=== PATIENT | female | born 1940 | race Caucasian/White ===

== ENCOUNTER 2022-01-23 20:24 | Emergency (ER) | payer MEDICARE, OTHER ==
[~2022-01-23] VITALS: Ht 165.1 cm; Wt 83.9 kg
[~2022-01-23 20:24] MED LIST: MELO15TA13 PO
[2022-01-23 21:02] VITALS: BP 158/72
[2022-01-23] MEDS ORDERED: IBUPROFEN 600 MG TABLET ONE (21:26)
[2022-01-23] MEDS ORDERED: IBUPROFEN 600 MG TABLET PO ONE (21:30)
--- NOTE | 2022-01-23 22:33 | NUR ---
Patient does not wish to proceed with medical care recommended by Delia Dempsey - [facility]. Patient given information related to possible complications, up to and including , which could occur as a result of leaving the hospital at this time. Patient verbalizes understanding of risks involved due to leaving against medical advice. Patient has signed AMA form.
== END 2022-01-23 22:35 | disposition left against medical advice (07) ==
LOC: ER 20:27
DX: M25.512 Pain in left shoulder (principal); M17.9 Osteoarthritis of knee, unspecified; E78.00 Pure hypercholesterolemia, unspecified; Z96.643 Presence of artificial hip joint, bilateral; Z60.2 Problems related to living alone
CPT/HCPCS: 73030-TC

== ENCOUNTER 2022-06-11 17:55 | Emergency (ER) | payer MEDICARE, OTHER ==
[~2022-06-11] VITALS: Ht 167.6 cm; Wt 83.9 kg
--- NOTE | 2022-06-11 18:16 | NUR ---
Patient AOx4 able to express her concerns. Patient able to provide history. BP is high patient states she is very nervous and not happy to be at the hospital. Left leg/Ankle abrasion. Will continue to monitor patient throughout shift and provide care as needed.
[2022-06-11] MEDS ORDERED: MUPI22OI2 TP (19:15)
--- NOTE | 2022-06-11 19:23 | NUR ---
Hand off report given to James, for continuity of care
--- NOTE | 2022-06-11 19:37 | NUR ---
[facility] CALLED ETA 30-45 MINUTES
--- NOTE | 2022-06-11 19:38 | NUR ---
DC PAPERWORK GIVEN. AWAITING AMBULANCE TRANSPORTATION FOR P/U
[2022-06-11 20:34] VITALS: BP 176/109
== END 2022-06-11 20:35 | disposition home or self-care (01) ==
LOC: ER 17:57
DX: S01.81XA Laceration without foreign body of other part of head, initial encounter (principal); E78.00 Pure hypercholesterolemia, unspecified; Z98.890 Other specified postprocedural states; Z79.899 Other long term (current) drug therapy; W17.89XA Other fall from one level to another, initial encounter; Y93.01 Activity, walking, marching and hiking; Y92.89 Other specified places as the place of occurrence of the external cause; Y99.8 Other external cause status
CPT/HCPCS: 99283; A6403

== ENCOUNTER 2022-06-17 12:30 | Outpatient (CLI) | payer MEDICARE, OTHER ==
[~2022-06-17 12:30] MED LIST changes: +MUPI22OI2 TP
== END 2022-06-17 23:59 | disposition home health service (06) ==
LOC: WOU 12:30
PROVIDERS: ATTEND Surgery
DX: S81.812A Laceration without foreign body, left lower leg, initial encounter (principal); W19.XXXA Unspecified fall, initial encounter; Y93.89 Activity, other specified; Y92.009 Unspecified place in unspecified non-institutional (private) residence as the place of occurrence of the external cause; M62.50 Muscle wasting and atrophy, not elsewhere classified, unspecified site; M16.0 Bilateral primary osteoarthritis of hip; M17.0 Bilateral primary osteoarthritis of knee; E66.9 Obesity, unspecified; Z68.33 Body mass index [BMI] 33.0-33.9, adult
CPT/HCPCS: 11043

== ENCOUNTER → 2022-06-24 | Outpatient (CLI) | payer MEDICARE, OTHER | END | disposition home health service (06) | LOC: WOU 13:00 | PROVIDERS: ATTEND Surgery | DX: S81.812A Laceration without foreign body, left lower leg, initial encounter (principal); W18.30XA Fall on same level, unspecified, initial encounter; Y92.89 Other specified places as the place of occurrence of the external cause; M17.0 Bilateral primary osteoarthritis of knee; M16.0 Bilateral primary osteoarthritis of hip; E66.9 Obesity, unspecified; Z68.33 Body mass index [BMI] 33.0-33.9, adult; M62.50 Muscle wasting and atrophy, not elsewhere classified, unspecified site | CPT/HCPCS: 11043 ==

== ENCOUNTER 2022-07-04 13:14 | Outpatient (CLI) | payer MEDICARE, OTHER ==
[~2022-07-04 13:14] MED LIST changes: +LIDOCAINE 2% JEL 5 ML TUBE ONE
== END 2022-07-04 23:59 | disposition home health service (06) ==
LOC: WOU 13:14
PROVIDERS: ATTEND Surgery
DX: S81.812A Laceration without foreign body, left lower leg, initial encounter (principal); W18.30XA Fall on same level, unspecified, initial encounter; Y92.89 Other specified places as the place of occurrence of the external cause; M17.0 Bilateral primary osteoarthritis of knee; M16.0 Bilateral primary osteoarthritis of hip; M62.50 Muscle wasting and atrophy, not elsewhere classified, unspecified site; E66.9 Obesity, unspecified; Z68.33 Body mass index [BMI] 33.0-33.9, adult
CPT/HCPCS: 11043

== ENCOUNTER 2023-03-14 19:19 | Inpatient (IN) | payer MEDICARE, OTHER ==
[~2023-03-14] VITALS: Ht 167.6 cm; Wt 65.8 kg
[~2023-03-14 19:19] MED LIST changes: -LIDOCAINE 2% JEL 5 ML TUBE ONE
[2023-03-14] MEDS ORDERED: PIPERACILLIN /TAZOBACTAM 3.375 G in IV D5W 50 ML IV ONE (20:30)
[2023-03-14] MEDS ORDERED: VANCOMYCIN 1 GM in IV D5W 250 ML IV ONE (20:30)
[2023-03-14] MEDS ORDERED: IV NS 0.9% 1,000 ML BAG IV ONE ×2 (20:30→22:30)
[2023-03-14] MEDS ORDERED: PIPERACI/TAZO 3.375GM/D5W 50ML PB IV ONE (20:43)
[2023-03-14] MEDS ORDERED: VANCOMYCIN 1 GM /D5W 250 ML PB IV ONE (21:06)
[2023-03-14 21:10] LABS: BASOPHILS % (AUTO) 0.1 % (0.0-2.0); EOSINOPHILS % (AUTO) 0.2 % (0.0-6.0); HEMATOCRIT 32 % (33-45); HEMOGLOBIN 10.3 g/dL (11.5-14.8); LYMPHOCYTES # (AUTO) 0.3 K/uL (0.8-4.8); LYMPHOCYTES % (AUTO) 1.8 % (20.0-44.0); MEAN CORPUSCULAR HEMOGLOBIN 29 PG (26.0-33.0); MEAN CORPUSCULAR HGB CONC 32 g/dl (31.0-36.0); MEAN CORPUSCULAR VOLUME 90 fL (82-100); MONOCYTES # (AUTO) 0.2 K/uL (0.1-1.30); MONOCYTES % (AUTO) 1.6 % (2.0-12.0); NEUTROPHILS # (AUTO) 13.8 K/uL (1.8-8.9); NEUTROPHILS % (AUTO) 96.3 % (43.0-81.0); PLATELET COUNT (AUTO) 272 K/uL (150-450); RED BLOOD CELL COUNT(AUTO) 3.59 MIL/uL (4.0-5.2); RED CELL DISTRIBUTION WIDTH 14.5 % (11.5-15.0); WHITE BLOOD COUNT (AUTO) 14.3 K/uL (4.3-11.0)
[2023-03-14 21:27] LABS: CARBON DIOXIDE 22 mmol/L (21-32); CHLORIDE 104 mmol/L (98-107); CREATININE 1.2 mg/dL (0.6-1.3); GLUCOSE 188 mg/dL (74-106); POTASSIUM 3.6 mmol/L (3.5-5.1); SODIUM SERUM 136 mmol/L (136-145); UREA NITROGEN, BLOOD 20 mg/dL (7-18)
[2023-03-14 21:33] LABS: ALANINE AMINOTRANSFERASE 13 U/L (12-78); ALBUMIN 2.3 g/dL (3.4-5.0); ALKALINE PHOSPHATASE 63 U/L (46-116); ASPARTATE AMINOTRANSFERASE 13 U/L (15-37); BILIRUBIN,DIRECT 0.1 mg/dL (0.0-0.2); BILIRUBIN,TOTAL 0.3 mg/dL (0.2-1.0); TOTAL PROTEIN, SERUM 6.2 g/dL (6.4-8.2)
[2023-03-14 21:37] LABS: LACTIC ACID 4.2 mmol/L (0.4-2.0)
[2023-03-14 21:40] LABS: INR 1.05 (0.91-1.10); PROTHROMBIN TIME 11.1 SECS (9.2-11.1)
[2023-03-14] MEDS ORDERED: MORPHINE SULFATE INJ 2 MG/ML DISP.SYRIN IV PRN (22:00)
[2023-03-14] MEDS ORDERED: ONDANSETRON HCL/PF 4 MG/2 ML VIAL IVP PRN (22:00)
[2023-03-14] MEDS ORDERED: MAG HYDROX/AL HYDROX/SIMETH 30 ML UDC PO PRN (22:00)
[2023-03-14] MEDS: IV NS 0.9% 1,000 ML IV SCH (23:15)
[2023-03-15] MEDS ORDERED: ZOSYN IVPB 3.375 G in IV D5W 50ml IV SCH (03:00)
[2023-03-15] MEDS ORDERED: PIPERACI/TAZO 3.375GM/D5W 50ML PB IV ONE (03:01)
[2023-03-15] MEDS ORDERED: ACETAMINOPHEN 325 MG TABLET ONE (07:41)
[2023-03-15] MEDS: ACETAMINOPHEN 325 MG TABLET PO PRN (07:44)
[2023-03-15 07:45] LABS: BASOPHILS % (AUTO) 0.1 % (0.0-2.0); EOSINOPHILS % (AUTO) 0.1 % (0.0-6.0); HEMATOCRIT 30 % (33-45); HEMOGLOBIN 9.6 g/dL (11.5-14.8); LYMPHOCYTES % (AUTO) 5.9 % (20.0-44.0); MEAN CORPUSCULAR HEMOGLOBIN 29 PG (26.0-33.0); MEAN CORPUSCULAR HGB CONC 32 g/dl (31.0-36.0); MEAN CORPUSCULAR VOLUME 90 fL (82-100); MONOCYTES # (AUTO) 1.2 K/uL (0.1-1.30); MONOCYTES % (AUTO) 7.2 % (2.0-12.0); NEUTROPHILS # (AUTO) 14.2 K/uL (1.8-8.9); NEUTROPHILS % (AUTO) 86.7 % (43.0-81.0); PLATELET COUNT (AUTO) 232 K/uL (150-450); RED BLOOD CELL COUNT(AUTO) 3.35 MIL/uL (4.0-5.2); RED CELL DISTRIBUTION WIDTH 14.6 % (11.5-15.0); WHITE BLOOD COUNT (AUTO) 16.4 K/uL (4.3-11.0)
[2023-03-15] MEDS ORDERED: PANTOPRAZOLE 40 MG TABLET.DR PO ONE (07:46)
[2023-03-15] MEDS: PANTOPRAZOLE 40 MG TABLET.DR PO SCH (07:46)
[2023-03-15] MEDS: IV NS 0.9% 1,000 ML IV SCH ×2 (07:53→21:00)
[2023-03-15 07:57] LABS: BILIRUBIN,TOTAL 0.4 mg/dL (0.2-1.0); CALCIUM, SERUM 7.8 mg/dL (8.5-10.1); MAGNESIUM 1.8 mg/dL (1.8-2.4); PHOSPHORUS 3.3 mg/dL (2.5-4.9); POTASSIUM 3.6 mmol/L (3.5-5.1); TOTAL PROTEIN, SERUM 5.6 g/dL (6.4-8.2)
[2023-03-15] MEDS ORDERED: ASPI-1169 PO (08:12)
[2023-03-15] MEDS ORDERED: IPRA3AMP23 IH (08:12)
[2023-03-15] MEDS ORDERED: DIPH25CA51 PO (08:12)
[2023-03-15] MEDS ORDERED: CEPH250C PO (08:12)
[2023-03-15] MEDS ORDERED: TRAM50TA2 PO (08:12)
[2023-03-15] MEDS ORDERED: MULT-447 PO (08:12)
[2023-03-15] MEDS ORDERED: ONDA4TAB5 PO (08:12)
[2023-03-15] MEDS ORDERED: ACET-868 PO ×2 (08:12)
[2023-03-15] MEDS ORDERED: SIMV-46 PO (08:12)
[2023-03-15] MEDS ORDERED: CRAN425C6 PO (08:12)
[2023-03-15] MEDS ORDERED: MELA3TAB41 PO (08:12)
[2023-03-15] MEDS ORDERED: CRAN3875 PO (08:12)
[2023-03-15] MEDS ORDERED: GABA-532 PO (08:12)
[2023-03-15] MEDS ORDERED: MYRBETRIQ ER PO (08:12)
[2023-03-15] MEDS ORDERED: ZINC56.713 TP (08:12)
[2023-03-15] MEDS ORDERED: ASCO-352 PO (08:12)
[2023-03-15] MEDS ORDERED: POLY17PO4 PO (08:12)
[2023-03-15] MEDS ORDERED: LOSA50TA39 PO (08:12)
[2023-03-15] MEDS ORDERED: DICL100G34 TP (08:12)
[2023-03-15] MEDS ORDERED: LUBI24CA5 PO (08:12)
[2023-03-15] MEDS ORDERED: PETR113O TP (08:12)
[2023-03-15] MEDS ORDERED: VIT1CAPS44 PO (08:12)
[2023-03-15] MEDS ORDERED: ACET-2605 PO (08:12)
[2023-03-15] MEDS ORDERED: DOCU-141 PO (08:12)
[2023-03-15] MEDS ORDERED: ESOM40CA PO (08:12)
[2023-03-15 08:37] LABS: THYROID STIMULATING HORMONE 2.081 uIU/mL (0.358-3.74)
[2023-03-15] MEDS ORDERED: ALBUMIN 5% 12.5 GM in PREMIX 1 EA IV ONE ×2 (09:30→12:30)
[2023-03-15] MEDS ORDERED: ALBUMIN 5% 12.5 GM/250 ML BOTTLE IV ONE (09:30)
[2023-03-15] MEDS ORDERED: IV NS 0.9% 250 ML BAG IV ONE (09:30)
[2023-03-15] MEDS ORDERED: ENOXAPARIN SODIUM 40 MG/0.4 ML DISP.SYRIN SQ ONE (09:40)
[2023-03-15] MEDS ORDERED: DOCUSATE SODIUM 100 MG CAPSULE PO ONE ×2 (09:41→19:26)
[2023-03-15] MEDS: DOCUSATE SODIUM 100 MG CAPSULE PO SCH ×2 (09:46→17:00)
[2023-03-15] MEDS: ENOXAPARIN SODIUM 40 MG/0.4 ML DISP.SYRIN SQ SCH (09:48)
[2023-03-15] MEDS ORDERED: PIPERACILLIN /TAZOBACTAM 3.375 G in IV D5W 50 ML IV SCH (12:00)
[2023-03-15] MEDS ORDERED: PIPERACILLIN /TAZOBACTAM 2.25 G in IV D5W 50 ML IV SCH (12:00)
[2023-03-15] MEDS ORDERED: NOREPINEPHRINE 8 MG in IV NS 0.9% 242 ML IV PRN (12:30)
[2023-03-15] MEDS: MEROPENEM 1 G in IV NS 0.9% 100 ML IV SCH ×2 (12:32→21:49)
[2023-03-15] MEDS: MIDODRINE HCL (5MG) 5 MG TABLET PO SCH ×2 (15:18→17:00)
[2023-03-15] MEDS: VANCOMYCIN 1 GM in IV D5W 250 ML IV SCH (18:55)
[2023-03-15] MEDS ORDERED: MORPHINE SULFATE INJ 2 MG/ML DISP.SYRIN ONE (20:08)
[2023-03-15 20:53] LABS: APPEARANCE,URINE CLOUDY (CLEAR)
[2023-03-15 20:56] LABS: COLOR,URINE BROWN (YELLOW)
[2023-03-15 21:02] LABS: BACTERIA,URINE 2+ /HPF (None Seen); RBC,URINE 51-80 /HPF (0-2); SQUAMOUS EPITHELIAL CELL,UR 0-2 /HPF (None Seen); WBC,URINE 51-80 /HPF (0-3)
[2023-03-15] MEDS ORDERED: ONDANSETRON HCL/PF 4 MG/2 ML VIAL ONE (22:57)
[2023-03-16] MEDS: IV NS 0.9% 1,000 ML IV SCH ×2 (04:18→15:12)
[2023-03-16 07:22] LABS: BASOPHILS # (AUTO) 0.1 K/uL (0.0-0.2); BASOPHILS % (AUTO) 0.4 % (0.0-2.0); EOSINOPHILS # (AUTO) 0.1 K/uL (0.0-0.7); EOSINOPHILS % (AUTO) 0.6 % (0.0-6.0); HEMATOCRIT 29 % (33-45); HEMOGLOBIN 8.7 g/dL (11.5-14.8); LYMPHOCYTES # (AUTO) 1.7 K/uL (0.8-4.8); LYMPHOCYTES % (AUTO) 13.3 % (20.0-44.0); MEAN CORPUSCULAR HEMOGLOBIN 29 PG (26.0-33.0); MEAN CORPUSCULAR HGB CONC 31 g/dl (31.0-36.0); MEAN CORPUSCULAR VOLUME 96 fL (82-100); MONOCYTES # (AUTO) 0.9 K/uL (0.1-1.30); NEUTROPHILS # (AUTO) 10.1 K/uL (1.8-8.9); NEUTROPHILS % (AUTO) 78.7 % (43.0-81.0); PLATELET COUNT (AUTO) 156 K/uL (150-450); RED BLOOD CELL COUNT(AUTO) 2.98 MIL/uL (4.0-5.2); RED CELL DISTRIBUTION WIDTH 15.8 % (11.5-15.0); WHITE BLOOD COUNT (AUTO) 12.8 K/uL (4.3-11.0)
[2023-03-16] MEDS: PANTOPRAZOLE 40 MG TABLET.DR PO SCH (07:30)
[2023-03-16 07:55] LABS: CALCIUM, SERUM 7.8 mg/dL (8.5-10.1); CREATININE 0.8 mg/dL (0.6-1.3); POTASSIUM 3.5 mmol/L (3.5-5.1)
[2023-03-16 07:58] LABS: IRON, SERUM 12 ug/dl (50-175); TOTAL IRON BINDING CAPACITY 133 ug/dl (250-450)
[2023-03-16] MEDS: ENOXAPARIN SODIUM 40 MG/0.4 ML DISP.SYRIN SQ SCH (09:00)
[2023-03-16] MEDS ORDERED: MIDODRINE HCL (5MG) 5 MG TABLET ONE (09:20)
[2023-03-16] MEDS ORDERED: ENOXAPARIN SODIUM 40 MG/0.4 ML DISP.SYRIN SQ ONE (09:20)
[2023-03-16] MEDS ORDERED: MORPHINE SULFATE INJ 2 MG/ML DISP.SYRIN ONE (09:21)
[2023-03-16] MEDS ORDERED: DOCUSATE SODIUM 100 MG CAPSULE PO ONE ×2 (09:21→09:28)
[2023-03-16] MEDS ORDERED: PANTOPRAZOLE 40 MG TABLET.DR PO ONE (09:21)
[2023-03-16] MEDS: DOCUSATE SODIUM 100 MG CAPSULE PO SCH ×2 (09:23→17:13)
[2023-03-16] MEDS: MIDODRINE HCL (5MG) 5 MG TABLET PO SCH (09:23)
[2023-03-16 09:45] VITALS: BP 111/68; TEMP 98.7; O2SAT 98
[2023-03-16] MEDS: MEROPENEM 1 G in IV NS 0.9% 100 ML IV SCH ×2 (11:16→20:55)
[2023-03-16 12:00] VITALS: BP 129/59; TEMP 98.7; O2SAT 95
[2023-03-16] MEDS ORDERED: ALBUTEROL FS 2.5 MG/0.5 ML VIAL.NEB NEB PRN (12:30)
[2023-03-16] MEDS: TRAMADOL HCL 50 MG TABLET PO PRN (12:47)
[2023-03-16] MEDS ORDERED: FUROSEMIDE 20 MG/2 ML VIAL IV ONE (13:00)
[2023-03-16 16:00] VITALS: BP 116/54; TEMP 98.2; O2SAT 96
[2023-03-16] MEDS: ENSURE ENLIVE CHOC 237 ML CAN PO SCH (17:00)
[2023-03-16] MEDS: VANCOMYCIN 1 GM in IV D5W 250 ML IV SCH (17:02)
[2023-03-16 20:00] VITALS: BP 109/60; TEMP 98; O2SAT 96
[2023-03-17] VITALS: BP 107/58; TEMP 98; O2SAT 98
[2023-03-17 04:00] VITALS: BP 109/58; TEMP 99.3; O2SAT 97
[2023-03-17 06:36] LABS: HEMOGLOBIN 9.8 g/dL (11.5-14.8)
[2023-03-17 06:56] LABS: BASOPHILS % (AUTO) 0.2 % (0.0-2.0); EOSINOPHILS # (AUTO) 0.1 K/uL (0.0-0.7); EOSINOPHILS % (AUTO) 1.3 % (0.0-6.0); HEMATOCRIT 30 % (33-45); LYMPHOCYTES # (AUTO) 1.4 K/uL (0.8-4.8); LYMPHOCYTES % (AUTO) 12.7 % (20.0-44.0); MEAN CORPUSCULAR HEMOGLOBIN 29 PG (26.0-33.0); MEAN CORPUSCULAR HGB CONC 33 g/dl (31.0-36.0); MEAN CORPUSCULAR VOLUME 90 fL (82-100); MONOCYTES # (AUTO) 1.1 K/uL (0.1-1.30); MONOCYTES % (AUTO) 9.9 % (2.0-12.0); NEUTROPHILS # (AUTO) 8.2 K/uL (1.8-8.9); NEUTROPHILS % (AUTO) 75.9 % (43.0-81.0); PLATELET COUNT (AUTO) 114 K/uL (150-450); RED BLOOD CELL COUNT(AUTO) 3.34 MIL/uL (4.0-5.2); RED CELL DISTRIBUTION WIDTH 14.5 % (11.5-15.0); WHITE BLOOD COUNT (AUTO) 10.8 K/uL (4.3-11.0)
[2023-03-17 07:25] LABS: CALCIUM, SERUM 7.9 mg/dL (8.5-10.1); CREATININE 0.8 mg/dL (0.6-1.3); POTASSIUM 3.3 mmol/L (3.5-5.1)
[2023-03-17 08:00] VITALS: BP 128/53; TEMP 97.9; O2SAT 96
[2023-03-17] MEDS: ASCORBIC ACID 500 MG TABLET PO SCH (08:51)
[2023-03-17] MEDS: DOCUSATE SODIUM 100 MG CAPSULE PO SCH ×2 (08:51→16:53)
[2023-03-17] MEDS: ASPIRIN EC 81 MG TABLET.DR PO SCH (08:51)
[2023-03-17] MEDS: PANTOPRAZOLE 40 MG TABLET.DR PO SCH (08:51)
[2023-03-17] MEDS: ENOXAPARIN SODIUM 40 MG/0.4 ML DISP.SYRIN SQ SCH (08:52)
[2023-03-17] MEDS: ENSURE ENLIVE CHOC 237 ML CAN PO SCH ×3 (09:07→17:29)
[2023-03-17] MEDS ORDERED: PROSOURCE / PROSTAT (PYXIS) 30 ML UDC PO SCH (10:00)
[2023-03-17] MEDS ORDERED: POTASSIUM CHLORIDE 20 MEQ TAB.PRT.SR PO SCH (10:30)
[2023-03-17] MEDS: MEROPENEM 1 G in IV NS 0.9% 100 ML IV SCH ×2 (10:31→20:59)
[2023-03-17] MEDS ORDERED: FUROSEMIDE 20 MG/2 ML VIAL IV ONE (11:00)
[2023-03-17] MEDS ORDERED: POTASSIUM CHLORIDE 20 MEQ TAB.PRT.SR PO ONE (11:00)
[2023-03-17] MEDS: PROSOURCE / PROSTAT (PYXIS) 30 ML UDC PO SCH ×3 (11:06→16:48)
[2023-03-17] MEDS ORDERED: POTASSIUM CHLORIDE 20 MEQ POWDER PACKET PO SCH (11:30)
[2023-03-17 12:00] VITALS: BP 116/56; TEMP 98.7; O2SAT 97
[2023-03-17 16:00] VITALS: BP 114/59; TEMP 98.1; O2SAT 98
[2023-03-17] MEDS ORDERED: IV NS 0.9% 250 ML IV PRN (17:00)
[2023-03-17] MEDS: VANCOMYCIN 1 GM in IV D5W 250 ML IV SCH (17:03)
[2023-03-17] MEDS ORDERED: VANCOMYCIN 0.75 GM in IV D5W 250 ML IV SCH (18:30)
[2023-03-17 20:00] VITALS: BP 126/57; TEMP 97.9; O2SAT 97
[2023-03-18] VITALS: BP 117/57; TEMP 100; O2SAT 97
[2023-03-18 04:00] VITALS: BP 109/78; TEMP 99; O2SAT 100
[2023-03-18] MEDS: TRAMADOL HCL 50 MG TABLET PO PRN ×2 (06:20→11:57)
[2023-03-18 07:09] LABS: BASOPHILS % (AUTO) 0.2 % (0.0-2.0); EOSINOPHILS # (AUTO) 0.1 K/uL (0.0-0.7); EOSINOPHILS % (AUTO) 1.6 % (0.0-6.0); HEMATOCRIT 32 % (33-45); HEMOGLOBIN 10.3 g/dL (11.5-14.8); LYMPHOCYTES # (AUTO) 1.1 K/uL (0.8-4.8); LYMPHOCYTES % (AUTO) 13.4 % (20.0-44.0); MEAN CORPUSCULAR HEMOGLOBIN 29 PG (26.0-33.0); MEAN CORPUSCULAR HGB CONC 33 g/dl (31.0-36.0); MEAN CORPUSCULAR VOLUME 89 fL (82-100); MONOCYTES % (AUTO) 11.4 % (2.0-12.0); NEUTROPHILS # (AUTO) 6.3 K/uL (1.8-8.9); NEUTROPHILS % (AUTO) 73.4 % (43.0-81.0); PLATELET COUNT (AUTO) 114 K/uL (150-450); RED BLOOD CELL COUNT(AUTO) 3.59 MIL/uL (4.0-5.2); RED CELL DISTRIBUTION WIDTH 14.6 % (11.5-15.0); WHITE BLOOD COUNT (AUTO) 8.6 K/uL (4.3-11.0)
[2023-03-18 07:18] LABS: CALCIUM, SERUM 8.2 mg/dL (8.5-10.1); CREATININE 0.8 mg/dL (0.6-1.3); POTASSIUM 3.8 mmol/L (3.5-5.1)
[2023-03-18 08:00] VITALS: BP 113/59; TEMP 98.3; O2SAT 98
[2023-03-18] MEDS: PROSOURCE / PROSTAT (PYXIS) 30 ML UDC PO SCH ×3 (08:15→17:02)
[2023-03-18] MEDS: ENSURE ENLIVE CHOC 237 ML CAN PO SCH ×3 (08:15→17:01)
[2023-03-18] MEDS: PANTOPRAZOLE 40 MG TABLET.DR PO SCH (08:16)
[2023-03-18] MEDS: ASCORBIC ACID 500 MG TABLET PO SCH (08:16)
[2023-03-18] MEDS: DOCUSATE SODIUM 100 MG CAPSULE PO SCH ×2 (08:16→17:01)
[2023-03-18] MEDS: ASPIRIN EC 81 MG TABLET.DR PO SCH (08:16)
[2023-03-18] MEDS: ENOXAPARIN SODIUM 40 MG/0.4 ML DISP.SYRIN SQ SCH (08:17)
[2023-03-18] MEDS: MEROPENEM 1 G in IV NS 0.9% 100 ML IV SCH ×2 (09:46→20:44)
[2023-03-18] MEDS ORDERED: FUROSEMIDE 20 MG/2 ML VIAL IV SCH (13:30)
[2023-03-18 16:00] VITALS: BP 121/63; TEMP 98.6; O2SAT 95
[2023-03-18] MEDS: VANCOMYCIN 0.75 GM in IV D5W 250 ML IV SCH (17:23)
[2023-03-18 20:00] VITALS: BP 127/57; TEMP 97.5; O2SAT 95
[2023-03-19 04:00] VITALS: BP 118/50; TEMP 99.2; O2SAT 98
[2023-03-19 07:23] LABS: CREATININE 0.7 mg/dL (0.6-1.3); POTASSIUM 3.6 mmol/L (3.5-5.1)
[2023-03-19 07:26] LABS: BASOPHILS % (AUTO) 0.4 % (0.0-2.0); EOSINOPHILS # (AUTO) 0.2 K/uL (0.0-0.7); EOSINOPHILS % (AUTO) 2.9 % (0.0-6.0); HEMATOCRIT 30 % (33-45); LYMPHOCYTES # (AUTO) 1.5 K/uL (0.8-4.8); LYMPHOCYTES % (AUTO) 18.8 % (20.0-44.0); MEAN CORPUSCULAR HEMOGLOBIN 29 PG (26.0-33.0); MEAN CORPUSCULAR HGB CONC 33 g/dl (31.0-36.0); MEAN CORPUSCULAR VOLUME 88 fL (82-100); MONOCYTES # (AUTO) 1.1 K/uL (0.1-1.30); MONOCYTES % (AUTO) 13.6 % (2.0-12.0); NEUTROPHILS # (AUTO) 5.3 K/uL (1.8-8.9); NEUTROPHILS % (AUTO) 64.3 % (43.0-81.0); PLATELET COUNT (AUTO) 128 K/uL (150-450); RED BLOOD CELL COUNT(AUTO) 3.41 MIL/uL (4.0-5.2); RED CELL DISTRIBUTION WIDTH 14.9 % (11.5-15.0); WHITE BLOOD COUNT (AUTO) 8.2 K/uL (4.3-11.0)
[2023-03-19 08:00] VITALS: BP 135/61; TEMP 98.4; O2SAT 97
[2023-03-19] MEDS: ASPIRIN EC 81 MG TABLET.DR PO SCH (08:51)
[2023-03-19] MEDS: MEROPENEM 1 G in IV NS 0.9% 100 ML IV SCH ×2 (08:51→20:23)
[2023-03-19] MEDS: ASCORBIC ACID 500 MG TABLET PO SCH (08:51)
[2023-03-19] MEDS: PROSOURCE / PROSTAT (PYXIS) 30 ML UDC PO SCH ×3 (08:51→16:50)
[2023-03-19] MEDS: DOCUSATE SODIUM 100 MG CAPSULE PO SCH ×2 (08:51→16:49)
[2023-03-19] MEDS: ENOXAPARIN SODIUM 40 MG/0.4 ML DISP.SYRIN SQ SCH (08:52)
[2023-03-19] MEDS: PANTOPRAZOLE 40 MG TABLET.DR PO SCH (08:52)
[2023-03-19] MEDS: ENSURE ENLIVE CHOC 237 ML CAN PO SCH ×3 (08:53→16:50)
[2023-03-19] MEDS ORDERED: POTASSIUM CHLORIDE 20 MEQ TAB.PRT.SR PO ONE ×2 (11:35→12:00)
[2023-03-19] MEDS ORDERED: FUROSEMIDE 20 MG/2 ML VIAL IV ONE (11:37)
[2023-03-19] MEDS: TRAMADOL HCL 50 MG TABLET PO PRN (12:26)
[2023-03-19 16:00] VITALS: BP 124/67; TEMP 99; O2SAT 96
[2023-03-19] MEDS: VANCOMYCIN 0.75 GM in IV D5W 250 ML IV SCH (16:49)
[2023-03-19 20:00] VITALS: BP 116/60; TEMP 99.1; O2SAT 93
[2023-03-20 04:00] VITALS: BP 102/58; TEMP 97.4; O2SAT 99
[2023-03-20 07:14] LABS: BASOPHILS % (AUTO) 0.5 % (0.0-2.0); EOSINOPHILS # (AUTO) 0.2 K/uL (0.0-0.7); HEMATOCRIT 32 % (33-45); HEMOGLOBIN 10.6 g/dL (11.5-14.8); LYMPHOCYTES # (AUTO) 1.7 K/uL (0.8-4.8); LYMPHOCYTES % (AUTO) 17.1 % (20.0-44.0); MEAN CORPUSCULAR HEMOGLOBIN 29 PG (26.0-33.0); MEAN CORPUSCULAR HGB CONC 33 g/dl (31.0-36.0); MEAN CORPUSCULAR VOLUME 88 fL (82-100); MONOCYTES # (AUTO) 1.4 K/uL (0.1-1.30); MONOCYTES % (AUTO) 14.8 % (2.0-12.0); NEUTROPHILS # (AUTO) 6.4 K/uL (1.8-8.9); NEUTROPHILS % (AUTO) 65.6 % (43.0-81.0); PLATELET COUNT (AUTO) 141 K/uL (150-450); RED BLOOD CELL COUNT(AUTO) 3.65 MIL/uL (4.0-5.2); RED CELL DISTRIBUTION WIDTH 14.6 % (11.5-15.0); WHITE BLOOD COUNT (AUTO) 9.7 K/uL (4.3-11.0)
[2023-03-20 07:50] LABS: CALCIUM, SERUM 8.2 mg/dL (8.5-10.1); CARBON DIOXIDE 29 mmol/L (21-32); CHLORIDE 99 mmol/L (98-107); CREATININE 0.7 mg/dL (0.6-1.3); GLUCOSE 106 mg/dL (74-106); POTASSIUM 3.9 mmol/L (3.5-5.1); SODIUM SERUM 134 mmol/L (136-145); UREA NITROGEN, BLOOD 12 mg/dL (7-18)
[2023-03-20 08:00] VITALS: BP 109/62; TEMP 98; O2SAT 99
[2023-03-20] MEDS: ENSURE ENLIVE CHOC 237 ML CAN PO SCH ×3 (08:23→17:37)
[2023-03-20] MEDS: PROSOURCE / PROSTAT (PYXIS) 30 ML UDC PO SCH ×3 (08:24→17:37)
[2023-03-20] MEDS: ASPIRIN EC 81 MG TABLET.DR PO SCH (08:48)
[2023-03-20] MEDS: DOCUSATE SODIUM 100 MG CAPSULE PO SCH ×2 (08:48→17:46)
[2023-03-20] MEDS: ASCORBIC ACID 500 MG TABLET PO SCH (08:48)
[2023-03-20] MEDS: ENOXAPARIN SODIUM 40 MG/0.4 ML DISP.SYRIN SQ SCH (08:49)
[2023-03-20] MEDS: PANTOPRAZOLE 40 MG TABLET.DR PO SCH (08:52)
[2023-03-20] MEDS: MEROPENEM 1 G in IV NS 0.9% 100 ML IV SCH ×2 (08:52→21:49)
[2023-03-20] MEDS: TRAMADOL HCL 50 MG TABLET PO PRN (13:23)
[2023-03-20] MEDS: FUROSEMIDE 20 MG/2 ML VIAL IV SCH ×2 (15:40→17:46)
[2023-03-20 16:00] VITALS: BP 123/81; TEMP 98.1; O2SAT 97
[2023-03-20] MEDS: FLUCONAZOLE IN NS 100 MG in PREMIX 1 EA IV SCH ×2 (17:45)
[2023-03-20 19:18] LABS: APPEARANCE,URINE CLOUDY (CLEAR); BILIRUBIN,URINE NEGATIVE (NEGATIVE); BLOOD, URINE 3+ Ery/uL (NEGATIVE); COLOR,URINE RED (YELLOW); KETONES,URINE TRACE mg/dL (NEGATIVE); LEUKOCYTE ESTERASE ,URINE 3+ (NEGATIVE); NITRITE, URINE NEGATIVE (NEGATIVE); PH,URINE 7.5 (5.0-8.0); PROTEIN,URINE 2+ mg/dl (NEGATIVE); UGLUCOSE NEGATIVE (NEGATIVE); UROBILINOGEN,URINE 0.2 EU/dL (0.2)
[2023-03-20 19:35] LABS: RBC,URINE TOO NUMEROUS TO COUN /HPF (0-2)
[2023-03-20 19:36] LABS: ADD URINE CULTURE YES; BACTERIA,URINE None seen /HPF (None Seen); YEAST,URINE None Seen /HPF (None Seen)
[2023-03-20 19:38] LABS: MUCUS,URINE Moderate /LPF (None Seen)
[2023-03-20 20:00] VITALS: BP 127/54; TEMP 98.1; O2SAT 98
[2023-03-21 04:00] VITALS: BP 104/46; TEMP 98.1; O2SAT 98
[2023-03-21 07:16] LABS: BASOPHILS % (AUTO) 0.4 % (0.0-2.0); EOSINOPHILS # (AUTO) 0.3 K/uL (0.0-0.7); EOSINOPHILS % (AUTO) 3.2 % (0.0-6.0); HEMATOCRIT 37 % (33-45); LYMPHOCYTES # (AUTO) 1.5 K/uL (0.8-4.8); LYMPHOCYTES % (AUTO) 17.7 % (20.0-44.0); MEAN CORPUSCULAR HEMOGLOBIN 29 PG (26.0-33.0); MEAN CORPUSCULAR HGB CONC 32 g/dl (31.0-36.0); MEAN CORPUSCULAR VOLUME 89 fL (82-100); MONOCYTES # (AUTO) 1.1 K/uL (0.1-1.30); MONOCYTES % (AUTO) 13.6 % (2.0-12.0); NEUTROPHILS # (AUTO) 5.4 K/uL (1.8-8.9); NEUTROPHILS % (AUTO) 65.1 % (43.0-81.0); PLATELET COUNT (AUTO) 191 K/uL (150-450); WHITE BLOOD COUNT (AUTO) 8.2 K/uL (4.3-11.0)
[2023-03-21 07:29] LABS: ALANINE AMINOTRANSFERASE 18 U/L (12-78); ALKALINE PHOSPHATASE 62 U/L (46-116); ASPARTATE AMINOTRANSFERASE 24 U/L (15-37); BILIRUBIN,TOTAL 0.4 mg/dL (0.2-1.0); CALCIUM, SERUM 8.5 mg/dL (8.5-10.1); CARBON DIOXIDE 32 mmol/L (21-32); CHLORIDE 96 mmol/L (98-107); CREATININE 0.7 mg/dL (0.6-1.3); GLUCOSE 106 mg/dL (74-106); POTASSIUM 3.9 mmol/L (3.5-5.1); SODIUM SERUM 130 mmol/L (136-145); TOTAL PROTEIN, SERUM 6.7 g/dL (6.4-8.2); UREA NITROGEN, BLOOD 12 mg/dL (7-18)
[2023-03-21 08:00] VITALS: BP 123/57; TEMP 98.6; O2SAT 98
[2023-03-21] MEDS: PANTOPRAZOLE 40 MG TABLET.DR PO SCH (09:06)
[2023-03-21] MEDS: DOCUSATE SODIUM 100 MG CAPSULE PO SCH ×2 (09:07→16:51)
[2023-03-21] MEDS: ASCORBIC ACID 500 MG TABLET PO SCH (09:07)
[2023-03-21] MEDS: ASPIRIN EC 81 MG TABLET.DR PO SCH (09:08)
[2023-03-21] MEDS: MEROPENEM 1 G in IV NS 0.9% 100 ML IV SCH ×2 (09:09→20:47)
[2023-03-21] MEDS: FUROSEMIDE 20 MG/2 ML VIAL IV SCH ×2 (09:11→16:51)
[2023-03-21] MEDS: ENSURE ENLIVE CHOC 237 ML CAN PO SCH ×3 (09:11→16:52)
[2023-03-21] MEDS: PROSOURCE / PROSTAT (PYXIS) 30 ML UDC PO SCH ×3 (09:14→16:52)
[2023-03-21] MEDS: ENOXAPARIN SODIUM 40 MG/0.4 ML DISP.SYRIN SQ SCH (11:41)
[2023-03-21 16:00] VITALS: BP 118/47; TEMP 99; O2SAT 98
[2023-03-21] MEDS: FLUCONAZOLE IN NS 100 MG in PREMIX 1 EA IV SCH ×2 (16:51)
[2023-03-21 20:00] VITALS: BP 98/57; TEMP 99; O2SAT 97
[2023-03-22 04:00] VITALS: BP 107/61; TEMP 98.6; O2SAT 97
[2023-03-22 07:01] LABS: BASOPHILS % (AUTO) 0.3 % (0.0-2.0); EOSINOPHILS # (AUTO) 0.2 K/uL (0.0-0.7); EOSINOPHILS % (AUTO) 1.9 % (0.0-6.0); HEMATOCRIT 32 % (33-45); HEMOGLOBIN 10.6 g/dL (11.5-14.8); LYMPHOCYTES # (AUTO) 1.7 K/uL (0.8-4.8); LYMPHOCYTES % (AUTO) 15.3 % (20.0-44.0); MEAN CORPUSCULAR HEMOGLOBIN 29 PG (26.0-33.0); MEAN CORPUSCULAR HGB CONC 33 g/dl (31.0-36.0); MEAN CORPUSCULAR VOLUME 88 fL (82-100); MONOCYTES # (AUTO) 1.3 K/uL (0.1-1.30); NEUTROPHILS # (AUTO) 8.2 K/uL (1.8-8.9); NEUTROPHILS % (AUTO) 71.5 % (43.0-81.0); PLATELET COUNT (AUTO) 248 K/uL (150-450); RED BLOOD CELL COUNT(AUTO) 3.69 MIL/uL (4.0-5.2); RED CELL DISTRIBUTION WIDTH 14.5 % (11.5-15.0); WHITE BLOOD COUNT (AUTO) 11.4 K/uL (4.3-11.0)
[2023-03-22 07:05] LABS: CALCIUM, SERUM 8.3 mg/dL (8.5-10.1); CREATININE 0.8 mg/dL (0.6-1.3); POTASSIUM 3.8 mmol/L (3.5-5.1)
[2023-03-22 08:00] VITALS: BP 127/58; TEMP 97.9; O2SAT 98
[2023-03-22] MEDS: ASCORBIC ACID 500 MG TABLET PO SCH (08:47)
[2023-03-22] MEDS: FUROSEMIDE 20 MG/2 ML VIAL IV SCH (08:47)
[2023-03-22] MEDS: ASPIRIN EC 81 MG TABLET.DR PO SCH (08:47)
[2023-03-22] MEDS: DOCUSATE SODIUM 100 MG CAPSULE PO SCH ×2 (08:49→17:33)
[2023-03-22] MEDS: PROSOURCE / PROSTAT (PYXIS) 30 ML UDC PO SCH ×3 (08:49→17:35)
[2023-03-22] MEDS: ENSURE ENLIVE CHOC 237 ML CAN PO SCH ×3 (08:49→17:34)
[2023-03-22] MEDS: ENOXAPARIN SODIUM 40 MG/0.4 ML DISP.SYRIN SQ SCH (08:51)
[2023-03-22] MEDS: PANTOPRAZOLE 40 MG TABLET.DR PO SCH (08:52)
[2023-03-22] MEDS: MEROPENEM 1 G in IV NS 0.9% 100 ML IV SCH ×2 (09:26→20:36)
[2023-03-22] MEDS: TRAMADOL HCL 50 MG TABLET PO PRN (12:59)
[2023-03-22] MEDS ORDERED: ENOXAPARIN SODIUM 40 MG/0.4 ML DISP.SYRIN SQ SCH (13:30)
[2023-03-22 16:00] VITALS: BP 110/91; TEMP 97.9; O2SAT 98
[2023-03-22] MEDS: MEGESTROL ACETATE SUSP 400 MG/10 ML UDC PO SCH (17:33)
[2023-03-22] MEDS: FLUCONAZOLE (100 MG) 100 MG TABLET PO SCH (17:34)
[2023-03-22] MEDS: oxyCODONE IR immediate release 5 MG PO SCH (17:34)
[2023-03-22 20:00] VITALS: BP 123/56; TEMP 97.6; O2SAT 96
[2023-03-22] MEDS: MIRTAZAPINE 15 MG TABLET PO SCH (21:53)
[2023-03-22] MEDS: SENNOSIDES 8.6 MG TABLET PO SCH (21:54)
[2023-03-23 04:40] VITALS: BP 116/45; TEMP 97.5; O2SAT 98
[2023-03-23 08:00] VITALS: BP 120/93; TEMP 98.9; O2SAT 99
[2023-03-23] MEDS: ASCORBIC ACID 500 MG TABLET PO SCH (08:47)
[2023-03-23] MEDS: DOCUSATE SODIUM 100 MG CAPSULE PO SCH ×2 (08:47→17:27)
[2023-03-23] MEDS: MEGESTROL ACETATE SUSP 400 MG/10 ML UDC PO SCH ×2 (08:47→17:27)
[2023-03-23] MEDS: ASPIRIN EC 81 MG TABLET.DR PO SCH (08:47)
[2023-03-23] MEDS: PROSOURCE / PROSTAT (PYXIS) 30 ML UDC PO SCH ×3 (08:47→17:27)
[2023-03-23] MEDS: oxyCODONE IR immediate release 5 MG PO SCH ×2 (08:48→17:27)
[2023-03-23] MEDS: PANTOPRAZOLE 40 MG TABLET.DR PO SCH (08:50)
[2023-03-23] MEDS: ENSURE ENLIVE CHOC 237 ML CAN PO SCH ×3 (08:51→17:31)
[2023-03-23] MEDS: MEROPENEM 1 G in IV NS 0.9% 100 ML IV SCH ×2 (08:51→21:30)
[2023-03-23] MEDS: ENOXAPARIN SODIUM 40 MG/0.4 ML DISP.SYRIN SQ SCH (08:52)
[2023-03-23 16:00] VITALS: BP 93/57; TEMP 99; O2SAT 99
[2023-03-23] MEDS: FLUCONAZOLE (100 MG) 100 MG TABLET PO SCH (17:30)
[2023-03-23 20:00] VITALS: BP 106/45; TEMP 101.2; O2SAT 99
[2023-03-23] MEDS: MIRTAZAPINE 15 MG TABLET PO SCH (21:40)
[2023-03-23] MEDS: SENNOSIDES 8.6 MG TABLET PO SCH (21:40)
[2023-03-23] MEDS: ACETAMINOPHEN 325 MG TABLET PO PRN (22:59)
[2023-03-24 04:00] VITALS: BP 95/45; TEMP 98.3; O2SAT 99
[2023-03-24 07:06] LABS: BASOPHILS % (AUTO) 0.1 % (0.0-2.0); EOSINOPHILS # (AUTO) 0.3 K/uL (0.0-0.7); EOSINOPHILS % (AUTO) 1.3 % (0.0-6.0); HEMATOCRIT 32 % (33-45); HEMOGLOBIN 10.5 g/dL (11.5-14.8); LYMPHOCYTES # (AUTO) 1.8 K/uL (0.8-4.8); LYMPHOCYTES % (AUTO) 8.6 % (20.0-44.0); MEAN CORPUSCULAR HEMOGLOBIN 29 PG (26.0-33.0); MEAN CORPUSCULAR HGB CONC 33 g/dl (31.0-36.0); MEAN CORPUSCULAR VOLUME 87 fL (82-100); MONOCYTES # (AUTO) 1.4 K/uL (0.1-1.30); MONOCYTES % (AUTO) 6.7 % (2.0-12.0); NEUTROPHILS # (AUTO) 17.2 K/uL (1.8-8.9); NEUTROPHILS % (AUTO) 83.3 % (43.0-81.0); PLATELET COUNT (AUTO) 349 K/uL (150-450); RED BLOOD CELL COUNT(AUTO) 3.68 MIL/uL (4.0-5.2); RED CELL DISTRIBUTION WIDTH 14.8 % (11.5-15.0); WHITE BLOOD COUNT (AUTO) 20.6 K/uL (4.3-11.0)
[2023-03-24 07:28] LABS: ALANINE AMINOTRANSFERASE 6 U/L (12-78); ALBUMIN 1.8 g/dL (3.4-5.0); ALKALINE PHOSPHATASE 71 U/L (46-116); ASPARTATE AMINOTRANSFERASE 13 U/L (15-37); BILIRUBIN,TOTAL 0.4 mg/dL (0.2-1.0); CALCIUM, SERUM 8.3 mg/dL (8.5-10.1); CARBON DIOXIDE 30 mmol/L (21-32); CHLORIDE 100 mmol/L (98-107); CREATININE 0.9 mg/dL (0.6-1.3); GLUCOSE 103 mg/dL (74-106); POTASSIUM 3.9 mmol/L (3.5-5.1); SODIUM SERUM 134 mmol/L (136-145); TOTAL PROTEIN, SERUM 6.5 g/dL (6.4-8.2); UREA NITROGEN, BLOOD 21 mg/dL (7-18)
[2023-03-24 08:00] VITALS: BP 118/40; TEMP 98.6; O2SAT 98
[2023-03-24] MEDS: DOCUSATE SODIUM 100 MG CAPSULE PO SCH ×2 (08:08→16:40)
[2023-03-24] MEDS: PROSOURCE / PROSTAT (PYXIS) 30 ML UDC PO SCH ×3 (08:08→16:44)
[2023-03-24] MEDS: MEGESTROL ACETATE SUSP 400 MG/10 ML UDC PO SCH ×2 (08:08→16:40)
[2023-03-24] MEDS: oxyCODONE IR immediate release 5 MG PO SCH ×2 (08:08→16:40)
[2023-03-24] MEDS: ENSURE ENLIVE CHOC 237 ML CAN PO SCH ×3 (08:08→17:00)
[2023-03-24] MEDS: ASCORBIC ACID 500 MG TABLET PO SCH (08:08)
[2023-03-24] MEDS: PANTOPRAZOLE 40 MG TABLET.DR PO SCH (08:08)
[2023-03-24] MEDS: ENOXAPARIN SODIUM 40 MG/0.4 ML DISP.SYRIN SQ SCH (08:09)
[2023-03-24] MEDS: ASPIRIN EC 81 MG TABLET.DR PO SCH (08:10)
[2023-03-24] MEDS: MEROPENEM 1 G in IV NS 0.9% 100 ML IV SCH ×2 (08:15→22:00)
[2023-03-24] MEDS ORDERED: IV NS 0.9% 1,000 ML BAG IV SCH (11:30)
[2023-03-24] MEDS: VANCOMYCIN HCL 0.75 GM in IV D5W 250 ML IV SCH (12:45)
[2023-03-24] MEDS: ACETAMINOPHEN 325 MG TABLET PO PRN (15:56)
[2023-03-24] MEDS: FLUCONAZOLE (100 MG) 100 MG TABLET PO SCH (16:41)
[2023-03-24 18:03] VITALS: BP 106/46; TEMP 102; O2SAT 98
[2023-03-24 20:00] VITALS: BP 119/64; TEMP 98.9; O2SAT 98
[2023-03-24] MEDS: MIRTAZAPINE 15 MG TABLET PO SCH (22:02)
[2023-03-24] MEDS: SENNOSIDES 8.6 MG TABLET PO SCH (22:02)
[2023-03-25 04:00] VITALS: BP 112/54; TEMP 99.5; O2SAT 98
[2023-03-25 06:58] LABS: BASOPHILS % (AUTO) 0.2 % (0.0-2.0); EOSINOPHILS # (AUTO) 0.3 K/uL (0.0-0.7); EOSINOPHILS % (AUTO) 1.6 % (0.0-6.0); HEMATOCRIT 32 % (33-45); HEMOGLOBIN 10.1 g/dL (11.5-14.8); LYMPHOCYTES # (AUTO) 2.3 K/uL (0.8-4.8); LYMPHOCYTES % (AUTO) 10.7 % (20.0-44.0); MEAN CORPUSCULAR HEMOGLOBIN 28 PG (26.0-33.0); MEAN CORPUSCULAR HGB CONC 32 g/dl (31.0-36.0); MEAN CORPUSCULAR VOLUME 87 fL (82-100); MONOCYTES # (AUTO) 1.1 K/uL (0.1-1.30); NEUTROPHILS # (AUTO) 17.5 K/uL (1.8-8.9); NEUTROPHILS % (AUTO) 82.5 % (43.0-81.0); PLATELET COUNT (AUTO) 401 K/uL (150-450); RED BLOOD CELL COUNT(AUTO) 3.63 MIL/uL (4.0-5.2); WHITE BLOOD COUNT (AUTO) 21.2 K/uL (4.3-11.0)
[2023-03-25 07:14] LABS: ALBUMIN 1.7 g/dL (3.4-5.0); BILIRUBIN,TOTAL 0.4 mg/dL (0.2-1.0); CALCIUM, SERUM 8.1 mg/dL (8.5-10.1); CREATININE 0.9 mg/dL (0.6-1.3); POTASSIUM 3.9 mmol/L (3.5-5.1); TOTAL PROTEIN, SERUM 6.3 g/dL (6.4-8.2)
[2023-03-25 08:00] VITALS: BP 109/66; TEMP 99; O2SAT 100
[2023-03-25] MEDS: ENSURE ENLIVE CHOC 237 ML CAN PO SCH ×3 (08:00→17:25)
[2023-03-25] MEDS: PROSOURCE / PROSTAT (PYXIS) 30 ML UDC PO SCH ×3 (08:00→16:07)
[2023-03-25 08:17] LABS: APPEARANCE,URINE CLOUDY (CLEAR); BILIRUBIN,URINE 1+ (NEGATIVE); BLOOD, URINE 2+ Ery/uL (NEGATIVE); COLOR,URINE RED (YELLOW); KETONES,URINE TRACE mg/dL (NEGATIVE); LEUKOCYTE ESTERASE ,URINE 3+ (NEGATIVE); NITRITE, URINE POSITIVE (NEGATIVE); PROTEIN,URINE 3+ mg/dl (NEGATIVE); UGLUCOSE NEGATIVE (NEGATIVE)
[2023-03-25 08:37] LABS: ADD URINE CULTURE YES; BACTERIA,URINE Moderate /HPF (None Seen); RBC,URINE 81-100 /HPF (0-2); WBC,URINE 51-80 /HPF (0-3)
[2023-03-25] MEDS: oxyCODONE IR immediate release 5 MG PO SCH ×2 (09:14→16:07)
[2023-03-25] MEDS: MEGESTROL ACETATE SUSP 400 MG/10 ML UDC PO SCH ×2 (09:14→16:07)
[2023-03-25] MEDS: PANTOPRAZOLE 40 MG TABLET.DR PO SCH (09:14)
[2023-03-25] MEDS: ASCORBIC ACID 500 MG TABLET PO SCH (09:14)
[2023-03-25] MEDS: MEROPENEM 1 G in IV NS 0.9% 100 ML IV SCH ×2 (09:14→20:46)
[2023-03-25] MEDS: ASPIRIN EC 81 MG TABLET.DR PO SCH (09:14)
[2023-03-25] MEDS: DOCUSATE SODIUM 100 MG CAPSULE PO SCH ×2 (09:14→16:07)
[2023-03-25] MEDS: ENOXAPARIN SODIUM 40 MG/0.4 ML DISP.SYRIN SQ SCH (09:16)
[2023-03-25] MEDS: IV NS 0.9% 1,000 ML BAG IV SCH ×2 (10:24→18:42)
[2023-03-25] MEDS: VANCOMYCIN HCL 0.75 GM in IV D5W 250 ML IV SCH (13:46)
[2023-03-25 16:00] VITALS: BP 112/48; TEMP 99.4; O2SAT 96
[2023-03-25] MEDS: FLUCONAZOLE (100 MG) 100 MG TABLET PO SCH (16:08)
[2023-03-25 20:40] VITALS: BP 117/49; TEMP 99.3; O2SAT 95
[2023-03-25] MEDS: SENNOSIDES 8.6 MG TABLET PO SCH (21:50)
[2023-03-25] MEDS: MIRTAZAPINE 15 MG TABLET PO SCH (21:50)
[2023-03-26 04:39] VITALS: BP 116/59; TEMP 99.1; O2SAT 99
[2023-03-26 06:47] LABS: BASOPHILS % (AUTO) 0.3 % (0.0-2.0); EOSINOPHILS # (AUTO) 0.4 K/uL (0.0-0.7); EOSINOPHILS % (AUTO) 2.9 % (0.0-6.0); HEMATOCRIT 30 % (33-45); HEMOGLOBIN 9.6 g/dL (11.5-14.8); LYMPHOCYTES # (AUTO) 1.9 K/uL (0.8-4.8); LYMPHOCYTES % (AUTO) 14.2 % (20.0-44.0); MEAN CORPUSCULAR HEMOGLOBIN 28 PG (26.0-33.0); MEAN CORPUSCULAR HGB CONC 33 g/dl (31.0-36.0); MEAN CORPUSCULAR VOLUME 87 fL (82-100); MONOCYTES % (AUTO) 7.5 % (2.0-12.0); NEUTROPHILS % (AUTO) 75.1 % (43.0-81.0); PLATELET COUNT (AUTO) 397 K/uL (150-450); RED BLOOD CELL COUNT(AUTO) 3.39 MIL/uL (4.0-5.2); WHITE BLOOD COUNT (AUTO) 13.4 K/uL (4.3-11.0)
[2023-03-26 08:00] VITALS: BP 110/51; TEMP 97.6; O2SAT 99
[2023-03-26] MEDS: oxyCODONE IR immediate release 5 MG PO SCH ×2 (08:17→16:43)
[2023-03-26] MEDS: MEGESTROL ACETATE SUSP 400 MG/10 ML UDC PO SCH ×2 (08:17→16:43)
[2023-03-26] MEDS: DOCUSATE SODIUM 100 MG CAPSULE PO SCH ×2 (08:17→16:43)
[2023-03-26] MEDS: ASCORBIC ACID 500 MG TABLET PO SCH (08:17)
[2023-03-26] MEDS: PANTOPRAZOLE 40 MG TABLET.DR PO SCH (08:17)
[2023-03-26] MEDS: MEROPENEM 1 G in IV NS 0.9% 100 ML IV SCH ×2 (08:17→21:34)
[2023-03-26] MEDS: ASPIRIN EC 81 MG TABLET.DR PO SCH (08:17)
[2023-03-26] MEDS: ENOXAPARIN SODIUM 40 MG/0.4 ML DISP.SYRIN SQ SCH (08:18)
[2023-03-26] MEDS: PROSOURCE / PROSTAT (PYXIS) 30 ML UDC PO SCH ×3 (08:25→17:14)
[2023-03-26] MEDS: ENSURE ENLIVE CHOC 237 ML CAN PO SCH ×3 (08:25→17:23)
[2023-03-26] MEDS: LINEZOLID 600 MG TABLET PO SCH ×2 (12:38→21:34)
[2023-03-26 16:00] VITALS: BP 114/50; TEMP 98.8; O2SAT 97
[2023-03-26] MEDS: FLUCONAZOLE (100 MG) 100 MG TABLET PO SCH (16:44)
[2023-03-26 20:00] VITALS: BP 158/70; TEMP 98.2; O2SAT 100
[2023-03-26] MEDS: SENNOSIDES 8.6 MG TABLET PO SCH (21:34)
[2023-03-27 04:00] VITALS: BP 138/70; TEMP 98.6; O2SAT 98
[2023-03-27 08:00] VITALS: BP 118/48; TEMP 98.4; O2SAT 98
[2023-03-27] MEDS: MEGESTROL ACETATE SUSP 400 MG/10 ML UDC PO SCH ×2 (08:22→17:49)
[2023-03-27] MEDS: ASPIRIN EC 81 MG TABLET.DR PO SCH (08:22)
[2023-03-27] MEDS: MEROPENEM 1 G in IV NS 0.9% 100 ML IV SCH (08:22)
[2023-03-27] MEDS: ASCORBIC ACID 500 MG TABLET PO SCH (08:22)
[2023-03-27] MEDS: DOCUSATE SODIUM 100 MG CAPSULE PO SCH ×2 (08:23→17:49)
[2023-03-27] MEDS: LINEZOLID 600 MG TABLET PO SCH ×2 (08:23→20:33)
[2023-03-27] MEDS: PANTOPRAZOLE 40 MG TABLET.DR PO SCH (08:23)
[2023-03-27] MEDS: oxyCODONE IR immediate release 5 MG PO SCH ×2 (08:23→17:49)
[2023-03-27] MEDS: ENSURE ENLIVE CHOC 237 ML CAN PO SCH ×3 (08:24→17:49)
[2023-03-27] MEDS: PROSOURCE / PROSTAT (PYXIS) 30 ML UDC PO SCH ×3 (08:25→17:49)
[2023-03-27] MEDS: ENOXAPARIN SODIUM 40 MG/0.4 ML DISP.SYRIN SQ SCH (09:50)
[2023-03-27 12:41] LABS: BASOPHILS # (AUTO) 0.1 K/uL (0.0-0.2); BASOPHILS % (AUTO) 0.7 % (0.0-2.0); EOSINOPHILS # (AUTO) 0.3 K/uL (0.0-0.7); EOSINOPHILS % (AUTO) 2.9 % (0.0-6.0); HEMATOCRIT 28 % (33-45); HEMOGLOBIN 9.2 g/dL (11.5-14.8); LYMPHOCYTES # (AUTO) 1.8 K/uL (0.8-4.8); LYMPHOCYTES % (AUTO) 16.3 % (20.0-44.0); MEAN CORPUSCULAR HEMOGLOBIN 28 PG (26.0-33.0); MEAN CORPUSCULAR HGB CONC 33 g/dl (31.0-36.0); MEAN CORPUSCULAR VOLUME 87 fL (82-100); MONOCYTES # (AUTO) 0.8 K/uL (0.1-1.30); MONOCYTES % (AUTO) 7.5 % (2.0-12.0); NEUTROPHILS % (AUTO) 72.6 % (43.0-81.0); PLATELET COUNT (AUTO) 396 K/uL (150-450); RED BLOOD CELL COUNT(AUTO) 3.24 MIL/uL (4.0-5.2); RED CELL DISTRIBUTION WIDTH 15.2 % (11.5-15.0); WHITE BLOOD COUNT (AUTO) 10.9 K/uL (4.3-11.0)
[2023-03-27 12:48] LABS: CREATININE 0.8 mg/dL (0.6-1.3); POTASSIUM 4.3 mmol/L (3.5-5.1)
[2023-03-27 16:00] VITALS: BP 101/51; TEMP 99.7; O2SAT 98
[2023-03-27 20:00] VITALS: BP 120/67; TEMP 98; O2SAT 98
[2023-03-27] MEDS: FLUCONAZOLE (100 MG) 100 MG TABLET PO SCH (20:22)
[2023-03-27] MEDS: SENNOSIDES 8.6 MG TABLET PO SCH (21:13)
[2023-03-28 04:00] VITALS: BP 119/71; TEMP 97.7; O2SAT 96
[2023-03-28 07:07] LABS: BASOPHILS % (AUTO) 0.5 % (0.0-2.0); EOSINOPHILS # (AUTO) 0.3 K/uL (0.0-0.7); EOSINOPHILS % (AUTO) 3.4 % (0.0-6.0); HEMATOCRIT 30 % (33-45); HEMOGLOBIN 9.7 g/dL (11.5-14.8); LYMPHOCYTES # (AUTO) 1.8 K/uL (0.8-4.8); LYMPHOCYTES % (AUTO) 19.3 % (20.0-44.0); MEAN CORPUSCULAR HEMOGLOBIN 29 PG (26.0-33.0); MEAN CORPUSCULAR HGB CONC 33 g/dl (31.0-36.0); MEAN CORPUSCULAR VOLUME 88 fL (82-100); MONOCYTES # (AUTO) 0.8 K/uL (0.1-1.30); MONOCYTES % (AUTO) 8.2 % (2.0-12.0); NEUTROPHILS # (AUTO) 6.4 K/uL (1.8-8.9); NEUTROPHILS % (AUTO) 68.6 % (43.0-81.0); PLATELET COUNT (AUTO) 434 K/uL (150-450); RED BLOOD CELL COUNT(AUTO) 3.37 MIL/uL (4.0-5.2); RED CELL DISTRIBUTION WIDTH 15.1 % (11.5-15.0); WHITE BLOOD COUNT (AUTO) 9.4 K/uL (4.3-11.0)
[2023-03-28 07:21] LABS: CALCIUM, SERUM 8.2 mg/dL (8.5-10.1); CREATININE 0.7 mg/dL (0.6-1.3); POTASSIUM 4.6 mmol/L (3.5-5.1)
[2023-03-28 08:00] VITALS: BP 126/51; TEMP 98.1; O2SAT 100
[2023-03-28] MEDS: ENSURE ENLIVE CHOC 237 ML CAN PO SCH ×3 (08:00→17:43)
[2023-03-28] MEDS: PANTOPRAZOLE 40 MG TABLET.DR PO SCH (08:29)
[2023-03-28] MEDS: PROSOURCE / PROSTAT (PYXIS) 30 ML UDC PO SCH ×3 (08:32→17:43)
[2023-03-28] MEDS: MEGESTROL ACETATE SUSP 400 MG/10 ML UDC PO SCH ×2 (09:45→17:21)
[2023-03-28] MEDS: LINEZOLID 600 MG TABLET PO SCH ×2 (09:45→21:50)
[2023-03-28] MEDS: DOCUSATE SODIUM 100 MG CAPSULE PO SCH ×2 (09:45→17:21)
[2023-03-28] MEDS: ASCORBIC ACID 500 MG TABLET PO SCH (09:45)
[2023-03-28] MEDS: ASPIRIN EC 81 MG TABLET.DR PO SCH (09:45)
[2023-03-28] MEDS: oxyCODONE IR immediate release 5 MG PO SCH ×2 (09:46→17:21)
[2023-03-28] MEDS: ENOXAPARIN SODIUM 40 MG/0.4 ML DISP.SYRIN SQ SCH (09:55)
[2023-03-28] MEDS: BETHANECHOL CHLORIDE (10 MG) 10 MG TABLET PO SCH ×3 (09:59→17:42)
[2023-03-28 16:00] VITALS: BP 130/60; TEMP 98.5; O2SAT 100
[2023-03-28 20:00] VITALS: BP 125/51; TEMP 97.5; O2SAT 98
[2023-03-28] MEDS: FLUCONAZOLE (100 MG) 100 MG TABLET PO SCH (20:33)
[2023-03-28] MEDS: SENNOSIDES 8.6 MG TABLET PO SCH (21:50)
[2023-03-29 04:00] VITALS: BP 110/63; TEMP 97.4; O2SAT 99
[2023-03-29 07:08] LABS: BASOPHILS # (AUTO) 0.1 K/uL (0.0-0.2); BASOPHILS % (AUTO) 0.8 % (0.0-2.0); EOSINOPHILS # (AUTO) 0.2 K/uL (0.0-0.7); EOSINOPHILS % (AUTO) 2.9 % (0.0-6.0); HEMATOCRIT 30 % (33-45); HEMOGLOBIN 9.7 g/dL (11.5-14.8); LYMPHOCYTES # (AUTO) 1.9 K/uL (0.8-4.8); LYMPHOCYTES % (AUTO) 22.9 % (20.0-44.0); MEAN CORPUSCULAR HEMOGLOBIN 28 PG (26.0-33.0); MEAN CORPUSCULAR HGB CONC 33 g/dl (31.0-36.0); MEAN CORPUSCULAR VOLUME 86 fL (82-100); MONOCYTES # (AUTO) 0.6 K/uL (0.1-1.30); NEUTROPHILS # (AUTO) 5.6 K/uL (1.8-8.9); NEUTROPHILS % (AUTO) 66.4 % (43.0-81.0); PLATELET COUNT (AUTO) 442 K/uL (150-450); RED BLOOD CELL COUNT(AUTO) 3.45 MIL/uL (4.0-5.2); RED CELL DISTRIBUTION WIDTH 14.9 % (11.5-15.0); WHITE BLOOD COUNT (AUTO) 8.5 K/uL (4.3-11.0)
[2023-03-29 07:37] LABS: CALCIUM, SERUM 8.4 mg/dL (8.5-10.1); CREATININE 0.8 mg/dL (0.6-1.3); POTASSIUM 4.6 mmol/L (3.5-5.1)
[2023-03-29] MEDS: PANTOPRAZOLE 40 MG TABLET.DR PO SCH (07:56)
[2023-03-29 08:00] VITALS: BP 108/64; TEMP 98.6; O2SAT 94
[2023-03-29] MEDS: ENSURE ENLIVE CHOC 237 ML CAN PO SCH ×3 (08:41→17:41)
[2023-03-29] MEDS: PROSOURCE / PROSTAT (PYXIS) 30 ML UDC PO SCH ×3 (08:41→17:41)
[2023-03-29] MEDS: DOCUSATE SODIUM 100 MG CAPSULE PO SCH ×2 (09:36→17:00)
[2023-03-29] MEDS: ASCORBIC ACID 500 MG TABLET PO SCH (09:36)
[2023-03-29] MEDS: MEGESTROL ACETATE SUSP 400 MG/10 ML UDC PO SCH ×2 (09:36→17:40)
[2023-03-29] MEDS: oxyCODONE IR immediate release 5 MG PO SCH ×2 (09:37→17:40)
[2023-03-29] MEDS: LINEZOLID 600 MG TABLET PO SCH ×2 (09:37→21:43)
[2023-03-29] MEDS: ASPIRIN EC 81 MG TABLET.DR PO SCH (09:37)
[2023-03-29] MEDS: ENOXAPARIN SODIUM 40 MG/0.4 ML DISP.SYRIN SQ SCH (09:42)
[2023-03-29] MEDS: BETHANECHOL CHLORIDE (10 MG) 10 MG TABLET PO SCH ×3 (09:45→17:40)
[2023-03-29 16:00] VITALS: BP 111/57; TEMP 97.1; O2SAT 94
[2023-03-29 20:00] VITALS: BP 116/52; TEMP 98.6; O2SAT 96
[2023-03-29] MEDS: FLUCONAZOLE (100 MG) 100 MG TABLET PO SCH (21:43)
[2023-03-29] MEDS: SENNOSIDES 8.6 MG TABLET PO SCH (21:43)
[2023-03-30 04:00] VITALS: BP 124/54; TEMP 98.4; O2SAT 96
[2023-03-30] MEDS: ACETAMINOPHEN 325 MG TABLET PO PRN (05:30)
[2023-03-30] MEDS: ENSURE ENLIVE CHOC 237 ML CAN PO SCH ×3 (07:59→17:09)
[2023-03-30 08:00] VITALS: BP 120/46; TEMP 99; O2SAT 97
[2023-03-30 08:01] LABS: CALCIUM, SERUM 8.2 mg/dL (8.5-10.1); CHLORIDE 101 mmol/L (98-107); CREATININE 0.8 mg/dL (0.6-1.3); GLUCOSE 96 mg/dL (74-106); POTASSIUM 4.4 mmol/L (3.5-5.1); SODIUM SERUM 135 mmol/L (136-145); UREA NITROGEN, BLOOD 15 mg/dL (7-18)
[2023-03-30] MEDS: PROSOURCE / PROSTAT (PYXIS) 30 ML UDC PO SCH ×3 (08:01→16:14)
[2023-03-30] MEDS: MEGESTROL ACETATE SUSP 400 MG/10 ML UDC PO SCH ×2 (08:10→16:13)
[2023-03-30] MEDS: LINEZOLID 600 MG TABLET PO SCH (08:10)
[2023-03-30] MEDS: PANTOPRAZOLE 40 MG TABLET.DR PO SCH (08:10)
[2023-03-30] MEDS: ASPIRIN EC 81 MG TABLET.DR PO SCH (08:10)
[2023-03-30] MEDS: oxyCODONE IR immediate release 5 MG PO SCH ×2 (08:10→16:14)
[2023-03-30] MEDS: DOCUSATE SODIUM 100 MG CAPSULE PO SCH ×2 (08:11→16:13)
[2023-03-30] MEDS: ASCORBIC ACID 500 MG TABLET PO SCH (08:11)
[2023-03-30] MEDS: ENOXAPARIN SODIUM 40 MG/0.4 ML DISP.SYRIN SQ SCH (08:13)
[2023-03-30] MEDS: BETHANECHOL CHLORIDE (10 MG) 10 MG TABLET PO SCH ×3 (08:13→16:14)
[2023-03-30 08:40] LABS: CARBON DIOXIDE 25 mmol/L (21-32)
[2023-03-30 16:00] VITALS: BP_SYST 123; BP_SYST 150; BP_DIAS 55; BP_DIAS 57; TEMP 98.2; O2SAT 100; O2SAT 95
== END 2023-03-30 18:54 | DRG 871 ==
LOC: ER 19:30 → TRANSITION 22:57 → TELE1 03-16 09:11 → TELE-TD 03-16 09:46 → MEDSG1 03-18 13:16
PROVIDERS: ADMIT Internal Medicine; ATTEND Internal Medicine
DX: A41.9 Sepsis, unspecified organism (principal); E43 Unspecified severe protein-calorie malnutrition; G92.8 Other toxic encephalopathy; R65.21 Severe sepsis with septic shock; J96.01 Acute respiratory failure with hypoxia; J18.9 Pneumonia, unspecified organism; N39.0 Urinary tract infection, site not specified; E46 Unspecified protein-calorie malnutrition; I50.32 Chronic diastolic (congestive) heart failure; E87.1 Hypo-osmolality and hyponatremia; F03.93 Unspecified dementia, unspecified severity, with mood disturbance; Z16.21 Resistance to vancomycin; N13.6 Pyonephrosis; I73.9 Peripheral vascular disease, unspecified; D50.9 Iron deficiency anemia, unspecified; D63.8 Anemia in other chronic diseases classified elsewhere; I11.0 Hypertensive heart disease with heart failure; Z20.822 Contact with and (suspected) exposure to COVID-19; Z87.440 Personal history of urinary (tract) infections; Z86.73 Personal history of transient ischemic attack (TIA), and cerebral infarction without residual deficits; I25.10 Atherosclerotic heart disease of native coronary artery without angina pectoris; Z96.643 Presence of artificial hip joint, bilateral; M19.90 Unspecified osteoarthritis, unspecified site; E78.00 Pure hypercholesterolemia, unspecified; Z79.899 Other long term (current) drug therapy; Z74.01 Bed confinement status; R13.10 Dysphagia, unspecified; Z91.81 History of falling; Z98.890 Other specified postprocedural states; Z87.891 Personal history of nicotine dependence; E86.0 Dehydration; B95.2 Enterococcus as the cause of diseases classified elsewhere; E87.6 Hypokalemia; E88.09 Other disorders of plasma-protein metabolism, not elsewhere classified; F32.A Depression, unspecified; R62.7 Adult failure to thrive; Z53.20 Procedure and treatment not carried out because of patient's decision for unspecified reasons; M62.462 Contracture of muscle, left lower leg; M62.461 Contracture of muscle, right lower leg; N20.0 Calculus of kidney; K59.00 Constipation, unspecified; R33.9 Retention of urine, unspecified; R31.0 Gross hematuria; Z74.09 Other reduced mobility
CPT/HCPCS: 36410; 36415; 71045-TC; 74018; 76770-TC; 80048-TC; 80053-TC; 80076-TC; 80202-TC; 81001; 82378; 82607-TC; 83540-TC; 83605-TC; 83735-TC; 83880; 84100-TC; 84443-TC; 84484-TC; 85025-TC; 85730-TC; 87040-TC; 87086-TC; 92526; 92611-TC; 97530-TC; A4216; A4217; A4223; A6253; A6403; G0378; J1450; J1650; J1940; J2185; J2270; J2405; J2543; J3370; J7030; J7050; J7060; P9045